=== PATIENT | male | born 1975 | race Caucasian/White ===

== ENCOUNTER 2018-06-28 23:58 | Emergency (ER) | payer SELFPAY | END 2018-06-29 00:10 | disposition left against medical advice (07) | LOC: DL.ED 23:58 | DX: Z53.20 Procedure and treatment not carried out because of patient's decision for unspecified reasons (principal) ==

== ENCOUNTER 2019-06-16 16:01 | Emergency (ER) | payer MEDICAID ==
--- NOTE | 2019-06-16 16:11 | EDM.PDOC ---
ED HPI GENERAL MEDICAL PROBLEM - General Chief Complaint: Upper Extremity Injury/Pain Stated Complaint: INFECTION IN RIGHT ARM Time Seen by Provider: 06/16/19 16:11 Source of Information: Reports: Patient, RN, RN Notes Reviewed History Limitations: Reports: No Limitations - History of Present Illness INITIAL COMMENTS - FREE TEXT/NARRATIVE: Pt presents to ER with c/o of pain with redness and swelling at the right antecubital fossa after trying to inject methamphetamine. Pt states it was his "first time ever injecting meth" and something went wrong. He denies fever, chills, purulent drainage, or Rt axillary lymphadenopathy. He reports Hx of MRSA. Pt is worried about HIV and hepatitis from his recent foray into IV drug use. Onset: Gradual Duration: Day(s): (2), Getting Worse Location: Reports: Upper Extremity, Right Quality: Reports: Ache Severity: Severe Improves with: Reports: Immobilization Worsens with: Reports: Movement Associated Symptoms: Reports: No Other Symptoms Right Arm Pain Score (Numeric/FACES): 8 - Related Data Allergies Allergy/AdvReac Type Severity Reaction Status Date / Time No Known Allergies Allergy Verified 06/16/19 16:16 Home Meds: Home Meds . [No Known Home Meds] 06/16/19 [History] Past Medical History Psychiatric History: Reports: Addiction - Infectious Disease History Infectious Disease History: Reports: MRSA Social & Family History - Family History Family Medical History: Unobtainable (Pt is unsure.) - Tobacco Use Smoking Status *Q: Current Every Day Smoker Tobacco Use Within Last Twelve Months: Cigarettes Packs/Tins Daily: 1 - Caffeine Use Caffeine Use: Reports: Energy Drinks - Alcohol Use Alcohol Use History: Yes Alcohol Use Frequency: Rarely - Recreational Drug Use Recreational Drug Use: Yes Drug Use in Last 12 Months: Yes Recreational Drug Type: Reports: Marijuana/Hashish, Methamphetamine Recreational Drug Use Frequency: Binges Recreational Drug Route: Reports: Inhaled, Intravenous - Living Situation & Occupation Living situation: Reports: Single Occupation: Other (Homeless) Review of Systems - Review of Systems Review Of Systems: Comprehensive ROS is negative, except as noted in HPI. ED EXAM, GENERAL - Physical Exam Exam: See Below Exam Limited By: No Limitations General Appearance: Alert, No Apparent Distress, Anxious Eye Exam: Bilateral Eye: Normal Inspection (No scleral icterus) Nose: Normal Inspection Throat/Mouth: Normal Voice, No Airway Compromise Head: Atraumatic, Normocephalic Neck: Normal Inspection, Full Range of Motion Respiratory/Chest: No Respiratory Distress, Lungs Clear, Chest Non-Tender Cardiovascular: Regular Rate, Rhythm, Tachycardia Peripheral Pulses: 3+: Radial (L), Radial (R) Extremities: Normal Capillary Refill, Joint Swelling (Mild swelling Rt elbow), Arm Pain, Limited Range of Motion (Rt elbow due to pain), Redness (Right antecubital region 5cm diameter, no fluctuant). No: Increased Warmth, Mottled, Pallor Neurological: Alert, Oriented, CN II-XII Intact, Normal Cognition, Normal Gait, No Motor/Sensory Deficits Psychiatric: Anxious Skin Exam: Dry, Intact Course - Vital Signs Last Recorded V/S: Last Vital Signs Temp 98.4 F 06/16/19 16:12 Pulse 114 H 06/16/19 16:12 Resp 16 06/16/19 16:12 BP 125/75 06/16/19 16:12 Pulse Ox 100 06/16/19 16:12 - Orders/Labs/Meds Orders: Active Orders 24 hr Category Date Time Status Peripheral IV Care [RC] . DIRECTED Care 06/16/19 16:12 Active Elbow Min 3V Rt [CR] Stat Exams 06/16/19 16:17 Ordered HEPATITIS PANEL (4) [REF] Routine Lab 06/16/19 16:27 Received Sodium Chloride 0.9% [Saline Flush] Med 06/16/19 16:12 Active 10 ml FLUSH ASDIRECTED PRN Peripheral IV Insertion Adult [OM.PC] Stat Oth 06/16/19 16:12 Ordered Medication Orders Sodium Chloride (Saline Flush) 10 ml FLUSH ASDIRECTED PRN PRN Reason: Keep Vein Open Last Admin: 06/16/19 16:34 Dose: 10 ml Labs: Laboratory Tests 06/16/19 06/16/19 06/16/19 Range/Units 16:27 16:27 16:27 WBC 16.4 H (5.0-10.0) 10^3/uL RBC 5.39 (4.6-6.2) 10^6/uL Hgb 15.8 (14.0-18.0) g/dL Hct 46.5 (40.0-54.0) % MCV 86.3 (80-100) fL MCH 29.3 (27.0-34.0) pg MCHC 34.0 (33.0-35.0) g/dL Plt Count 247 (150-450) 10^3/uL Neut % (Auto) 72.3 (42.2-75.2) % Lymph % (Auto) 16.4 L (20.5-50.1) % [place] % (Auto) 9.2 H (2-8) % Eos % (Auto) 2.0 (1.0-3.0) % Baso % (Auto) 0.1 (0.0-1.0) % Sodium 136 (136-145) mmol/L Potassium 3.5 (3.5-5.1) mmol/L Chloride 96 L (98-107) mmol/L Carbon Dioxide 30 (21-32) mmol/L Anion Gap 13.5 H (7-13) mEq/L BUN 10 (7-18) mg/dL Creatinine 0.98 (0.70-1.30) mg/dL Est Cr Clr Drug Dosing 98.53 mL/min Estimated GFR (MDRD) > 60 BUN/Creatinine Ratio 10.2 (No establ ref range) Glucose 92 (74-99) mg/dL Calcium 8.7 (8.5-10.1) mg/dL Total Bilirubin 0.8 (0.2-1.0) mg/dL AST 35 (15-37) U/L ALT 108 H (16-63) U/L Alkaline Phosphatase 130 H (46-116) U/L C-Reactive Protein 4.9 H (0.0-0.9) mg/dL Total Protein 8.1 (6.4-8.2) g/dL Albumin 4.1 (3.4-5.0) g/dL Globulin 4.0 Albumin/Globulin Ratio 1.0 HIV-1 Antibody Non-reactive (NONREACTIVE) HIV-2 Antibody Non-reactive (NONREACTIVE) HIV P24 Antigen Non-reactive (NONREACTIVE) Meds: Medications Generic Name Dose Route Start Last Admin Trade Name Freq PRN Reason Stop Dose Admin Sodium Chloride 10 ml 06/16/19 16:12 06/16/19 16:34 Saline Flush FLUSH 10 ml ASDIRECTED PRN Administration Keep Vein Open Discontinued Medications Generic Name Dose Route Start Last Admin Trade Name Freq PRN Reason Stop Dose Admin Diphenhydramine HCl 12.5 mg 06/16/19 16:20 06/16/19 16:33 Benadryl IVPUSH 06/16/19 16:21 12.5 mg ONETIME ONE Administration Vancomycin HCl 1 gm/ Sodium 250 mls @ 167 mls/hr 06/16/19 16:20 06/16/19 16: 33 Chloride IV 06/16/19 17:49 167 mls/hr ONETIME ONE Administration Ketorolac Tromethamine 30 mg 06/16/19 16:16 06/16/19 16:28 Toradol IVPUSH 06/16/19 16:17 30 mg ONETIME ONE Administration - Radiology Interpretation Free Text/Narrative:: XR Rt Elbow: no opaque FB, no fracture, see Rad. report. Departure - Departure Time of Disposition: 18:30 Disposition: Home, Self-Care 01 Condition: Good Clinical Impression: Cellulitis of antecubital fossa, Methamphetamine abuse - Discharge Information *PRESCRIPTION DRUG MONITORING PROGRAM REVIEWED*: Not Applicable *COPY OF PRESCRIPTION DRUG MONITORING REPORT IN PATIENT HELDER: Not Applicable Instructions: Cellulitis, Adult, [id number], Stimulant Use Disorder- Methamphetamines Forms: ED Department Discharge Additional Instructions: Rx: Clindamycin 300mg Rx: Doxycycline 100mg Rx: Naprosyn 500mg Abstain from drug use. Consider going to a treatment program if you are unable to quit on your own. Follow up with [facility] in 2 to 3 days for recheck. Call [phone] to schedule an appointment. Sepsis Event Note - Focused Exam Vital Signs: Vital Signs Temp Pulse Resp BP Pulse Ox 06/16/19 16:12 98.4 F 114 H 16 125/75 100 Date Exam was Performed: 06/16/19 Time Exam was Performed: 17:51 - My Orders Last 24 Hours: My Active Orders 06/16/19 16:12 Peripheral IV Care [RC] . DIRECTED Sodium Chloride 0.9% [Saline Flush] 10 ml FLUSH ASDIRECTED PRN Peripheral IV Insertion Adult [OM.PC] Stat 06/16/19 16:17 Elbow Min 3V Rt [CR] Stat 06/16/19 16:27 HEPATITIS PANEL (4) [REF] Routine - Assessment/Plan Last 24 Hours: My Active Orders 06/16/19 16:12 Peripheral IV Care [RC] . DIRECTED Sodium Chloride 0.9% [Saline Flush] 10 ml FLUSH ASDIRECTED PRN Peripheral IV Insertion Adult [OM.PC] Stat 06/16/19 16:17 Elbow Min 3V Rt [CR] Stat 06/16/19 16:27 HEPATITIS PANEL (4) [REF] Routine
[2019-06-16] MEDS ORDERED: Sodium Chloride 0.9% 10 ML Syringe FLUSH PRN (16:12)
[2019-06-16] MEDS ORDERED: Ketorolac 30 MG/ML SDV IVPUSH ONE (16:16)
[2019-06-16] MEDS ORDERED: diphenhydrAMINE 50 MG/ML SDV IVPUSH ONE (16:20)
[2019-06-16 16:52] LABS: ANION GAP 13.5 mEq/L (7-13); CHLORIDE,CL 96 mmol/L (98-107); SODIUM,NA 136 mmol/L (136-145)
== END 2019-06-16 18:17 | disposition home or self-care (01) ==
LOC: DL.ED 16:01
DX: L03.113 Cellulitis of right upper limb (principal); F15.10 Other stimulant abuse, uncomplicated; F17.210 Nicotine dependence, cigarettes, uncomplicated
CPT/HCPCS: 36415; 73080; 80053; 80074; 85025; 86140; 87389; 96365; 96366; 96375; 99283; J1200; J1885; J3370; J7050